=== PATIENT | male | born 1975 | race Caucasian/White ===

== ENCOUNTER → 2022-08-30 14:38 | Outpatient (BNVA) | payer MEDICAID, SELFPAY | PROVIDERS: Visit Provider Family Medicine | DX: I10 Essential (primary) hypertension (principal); Z23 Encounter for immunization | CPT/HCPCS: 80053; 80061; 85025 ==

== ENCOUNTER → 2025-02-24 15:52 | Outpatient (BNVA) | payer OTHER, SELFPAY | PROVIDERS: PCP Family Medicine; Visit Provider Family Medicine | DX: I10 Essential (primary) hypertension (principal) | CPT/HCPCS: 80053; 80061; 84439; 84443; 85025 ==